=== PATIENT | female | born 1970 | race Caucasian/White ===

== ENCOUNTER 2017-04-10 13:31 | Emergency (ER) | payer OTHER ==
--- NOTE | 2017-04-10 14:31 | ED ORDER SUMMARY ---
..... Patient: MUKESH LYLE OrderSheet [facility] VisitID: [id number] [address] [place] [place] [address] 46y, F Registration Date/Time: 04/10/2017 ORDER SHEET Weight: 66.2 kg (stated) Allergies: No Known Drug Allergy GENERAL ORDERS: - (please evaluate for evidence of body fluid - blood cells specifically) (14:21 04/10/2017 [facility]) (14:24 CBradburn R.N.) SGPT Urgent (14:04/10/2017 [facility]) (Ack 14:51 [facility]) (14:59 CBradburn R.N.) HIV I and II Urgent (14:04/10/2017 [facility]) (Ack 14:51 [facility]) (14:59 CBradburn R.N.) HepBSAB Urgent (14:04/10/2017 [facility]) (Ack 14:51 [facility]) (14:59 CBradburn R.N.) HepBSAG Urgent (14:31 [facility] (Ack 14:51 [facility]) (14:59 CBradburn R.N.) HepCAB Urgent (14:04/10/2017 [facility]) (Ack 14:51 [facility]) (14:59 CBradburn R.N.) MEDICATION ORDERS: IV FLUIDS: ORDER SHEET NOTES: [Electronically signed by Lyla Jones R.N. (15:02 04/10/2017)] [Electronically signed by Scott Watson DO (16:41 04/10/2017)] [Electronically locked/signed by Lyla Jones R.N. (15:02 04/10/2017)]
--- NOTE | 2017-04-10 14:31 | ED CLINICAL REPORT ---
Clinical Report - Physicians/Mid Levels [facility] [address] [place] [address] 04/10/2017 13:34 Patient: MUKESH LYLE Time Seen: 13:48. Arrived- By private vehicle. Historian- patient. HISTORY OF PRESENT ILLNESS Chief Complaint: Injury to the right hand and Injury. (NEEDLE STICK). 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 The patient sustained a puncture wound from a needle. (pt reached under hotel bed states felt a needle prick her twice denies bleeding). No redness noted, red streak noted, swelling noted, drainage noted or fever noted. No increased pain noted or numbness noted. (local hotel). Patient is experiencing mild pain. Patient denies injury to the head or neck. No other injury. REVIEW OF SYSTEMS Last normal menstrual period was 2 weeks ago. No swelling, tingling, numbness, weakness or foreign body. No skin laceration. PAST HISTORY PROBLEMS: Small bowel obstruction. Depression. Anxiety Reaction. GERD. Back pain. SURGERIES: Gastric bypass. Tonsillectomy. The patient's dominant hand is the right. Tetanus immunization status is up-to-date. SOCIAL HISTORY Smoker- current status unknown. No alcohol use or drug use. Residence: [place]. ADDITIONAL NOTES The nursing notes have been reviewed. PHYSICAL EXAM Vital Signs: 04/10/2017 13:42 BP: 149/89. HR: 87. RR: 18. O2 saturation: 100%. Temp: 98.6 F. Pain level now: 0/10. Appearance: Alert. Oriented X3. Anxious. Patient in mild distress. Head: Head atraumatic. Eyes: Eyes normal inspection. No scleral icterus or pale conjunctivae. ENT: Nose normal. Neck: Normal inspection. Neck supple. CVS: Normal heart rate and rhythm. Heart sounds normal. Pulses normal. Respiratory: No respiratory distress. Breath sounds normal. Abdomen: No visible injury. Soft and nontender. No organomegaly. Back: Normal inspection. Skin: Skin warm and dry. Extremities: Right palm: abrasion (old abrasion, otherwise normal appearing hand). No erythema, tenderness, swelling, laceration or ecchymosis. No foreign body or deformity. No limitation in movement. No wrist injury. Hand and wrist exam otherwise negative. Extremities otherwise negative. Neuro, Vascular and Tendons: Vascular status intact. Sensation intact. Motor intact. Tendon function intact. Neuro: Oriented X 3. No motor deficit. No sensory deficit. LABS, X-RAYS, AND EKG Laboratory Tests: [id number]: (AYESHA: 04/10/2017 14:52) ( ScgRcvd 04/10/2017 15:28) Final results Test Result Flag Units (Reference) HIV-1 P24 ANTIGEN NEGATIVE (NEGATIVE) HIV-1 AND OR HIV-2 ANTIBODY NEGATIVE (NEGATIVE) [id number]: (AYESHA: 04/10/2017 14:52) ( ScgRcvd 04/10/2017 15:12) Final results Test Result Flag Units (Reference) ALT (SGPT) 19 U/L (12-78) . Pulse Oximetry: 04/10/2017 13:42 O2 saturation: 100%. (FIO2 - room air). Interpretation: normal. PROGRESS AND PROCEDURES Course of Care: Long discussion with patient about risks and benefits. She and her are informed that although there is a low risk, it is not zero risk. I have offered HIV prophylaxsis and she declines. The needle was clean without any sign of blood / body fluid and if present was present for over 24 hours as the family had been in the hotel room for that length of time. The needle was sent to the lab to see if it was possible to wash the devise and look for blood cells, but the lab does not feel there is any reasonable possibility of recovering any blood cells. Patient/family counseled. Prior records not ordered. Disposition: Discharged. Condition: stable and improved. CLINICAL IMPRESSION Single superficial puncture wound to the right hand (insulin autoinjector syringe- dry without visual evidence of blood). No puncture wound with foreign body present or infected puncture wound. Essential hypertension. INSTRUCTIONS Warnings: GENERAL WARNINGS: Return or contact your physician immediately if your condition worsens or changes unexpectedly, if not improving as expected, or if other problems arise. Your Current Medications: CONTINUE TAKING THE FOLLOWING MEDICATIONS: CloNIDine HCl Oral : Tablet 0.1 mg, 1 tablet 4x a day, prn. Cyclobenzaprine HCl Oral : 30mg 3x a day. PriLOSEC Oral : Capsule Delayed Release 40 mg, 1 capsule daily. SEROquel Oral : Tablet 300 mg, 1 tablet daily. Wellbutrin Oral : Tablet 100 mg, 300mg daily. Follow-up: Screening today revealed the patient's blood pressure to be in the hypertensive range. The patient should follow up with a primary care provider for blood pressure management. (Electronically signed by Scott Watson DO 04/10/2017 16:41)
--- NOTE | 2017-04-10 14:31 | ED CLINICAL REPORT ---
Clinical Report - Physicians/Mid Levels [facility] [address] [place] [address] 04/10/2017 13:34 Patient: MUKESH LYLE Time Seen: 13:48. Arrived- By private vehicle. Historian- patient. HISTORY OF PRESENT ILLNESS Chief Complaint: Injury to the right hand and Injury. (NEEDLE STICK). 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 The patient sustained a puncture wound from a needle. (pt reached under hotel bed states felt a needle prick her twice denies bleeding). No redness noted, red streak noted, swelling noted, drainage noted or fever noted. No increased pain noted or numbness noted. (local hotel). Patient is experiencing mild pain. Patient denies injury to the head or neck. No other injury. REVIEW OF SYSTEMS Last normal menstrual period was 2 weeks ago. No swelling, tingling, numbness, weakness or foreign body. No skin laceration. PAST HISTORY PROBLEMS: Small bowel obstruction. Depression. Anxiety Reaction. GERD. Back pain. SURGERIES: Gastric bypass. Tonsillectomy. The patient's dominant hand is the right. Tetanus immunization status is up-to-date. SOCIAL HISTORY Smoker- current status unknown. No alcohol use or drug use. Residence: [place]. ADDITIONAL NOTES The nursing notes have been reviewed. PHYSICAL EXAM Vital Signs: 04/10/2017 13:42 BP: 149/89. HR: 87. RR: 18. O2 saturation: 100%. Temp: 98.6 F. Pain level now: 0/10. Appearance: Alert. Oriented X3. Anxious. Patient in mild distress. Head: Head atraumatic. Eyes: Eyes normal inspection. No scleral icterus or pale conjunctivae. ENT: Nose normal. Neck: Normal inspection. Neck supple. CVS: Normal heart rate and rhythm. Heart sounds normal. Pulses normal. Respiratory: No respiratory distress. Breath sounds normal. Abdomen: No visible injury. Soft and nontender. No organomegaly. Back: Normal inspection. Skin: Skin warm and dry. Extremities: Right palm: abrasion (old abrasion, otherwise normal appearing hand). No erythema, tenderness, swelling, laceration or ecchymosis. No foreign body or deformity. No limitation in movement. No wrist injury. Hand and wrist exam otherwise negative. Extremities otherwise negative. Neuro, Vascular and Tendons: Vascular status intact. Sensation intact. Motor intact. Tendon function intact. Neuro: Oriented X 3. No motor deficit. No sensory deficit. LABS, X-RAYS, AND EKG Laboratory Tests: [id number]: (AYESHA: 04/10/2017 14:52) ( IagRcvd 04/10/2017 15:28) Final results Test Result Flag Units (Reference) HIV-1 P24 ANTIGEN NEGATIVE (NEGATIVE) HIV-1 AND OR HIV-2 ANTIBODY NEGATIVE (NEGATIVE) [id number]: (AYESHA: 04/10/2017 14:52) ( IagRcvd 04/10/2017 15:12) Final results Test Result Flag Units (Reference) ALT (SGPT) 19 U/L (12-78) . Pulse Oximetry: 04/10/2017 13:42 O2 saturation: 100%. (FIO2 - room air). Interpretation: normal. PROGRESS AND PROCEDURES Course of Care: Long discussion with patient about risks and benefits. She and her are informed that although there is a low risk, it is not zero risk. I have offered HIV prophylaxsis and she declines. The needle was clean without any sign of blood / body fluid and if present was present for over 24 hours as the family had been in the hotel room for that length of time. The needle was sent to the lab to see if it was possible to wash the devise and look for blood cells, but the lab does not feel there is any reasonable possibility of recovering any blood cells. Patient/family counseled. Prior records not ordered. Disposition: Discharged. Condition: stable and improved. CLINICAL IMPRESSION Single superficial puncture wound to the right hand (insulin autoinjector syringe- dry without visual evidence of blood). No puncture wound with foreign body present or infected puncture wound. Essential hypertension. INSTRUCTIONS Warnings: GENERAL WARNINGS: Return or contact your physician immediately if your condition worsens or changes unexpectedly, if not improving as expected, or if other problems arise. Your Current Medications: CONTINUE TAKING THE FOLLOWING MEDICATIONS: CloNIDine HCl Oral : Tablet 0.1 mg, 1 tablet 4x a day, prn. Cyclobenzaprine HCl Oral : 30mg 3x a day. PriLOSEC Oral : Capsule Delayed Release 40 mg, 1 capsule daily. SEROquel Oral : Tablet 300 mg, 1 tablet daily. Wellbutrin Oral : Tablet 100 mg, 300mg daily. Follow-up: Screening today revealed the patient's blood pressure to be in the hypertensive range. The patient should follow up with a primary care provider for blood pressure management. (Electronically signed by Scott Watson DO 04/10/2017 16:41)
--- NOTE | 2017-04-10 14:31 | ED ORDER SUMMARY ---
..... Patient: MUKESH LYLE OrderSheet [facility] VisitID: [id number] [address] [place] [address] 46y, F Registration Date/Time: 04/10/2017 ORDER SHEET Weight: 66.2 kg (stated) Allergies: No Known Drug Allergy GENERAL ORDERS: - (please evaluate for evidence of body fluid - blood cells specifically) (14:21 04/10/2017 [facility]) (14:24 CBradburn R.N.) SGPT Urgent (14:04/10/2017 [facility]) (Ack 14:51 [facility]) (14:59 CBradburn R.N.) HIV I and II Urgent (14:04/10/2017 [facility]) (Ack 14:51 [facility]) (14:59 CBradburn R.N.) HepBSAB Urgent (14:04/10/2017 [facility]) (Ack 14:51 [facility]) (14:59 CBradburn R.N.) HepBSAG Urgent (14:31 [facility]10[facility] (Ack 14:51 TBerg[facility]) (14:59 CBradburn R.N.) HepCAB Urgent (14:04/10/2017 [facility]) (Ack 14:51 [facility]) (14:59 CBradburn R.N.) MEDICATION ORDERS: IV FLUIDS: ORDER SHEET NOTES: [Electronically signed by Lyla Jones R.N. (15:02 04/10/2017)] [Electronically signed by Scott Watson DO (16:41 04/10/2017)] [Electronically locked/signed by Lyla Jones R.N. (15:02 04/10/2017)]
--- NOTE | 2017-04-10 14:31 | ED NURSING NOTES ---
Clinical Report - Nurses [facility] [address] [place] [address] 04/10/2017 13:34 Patient: MUKESH LYLE TRIAGE Triage time 13:42. Acuity: LEVEL 4. Chief Complaint: (needle stick). --13:50 Lyla Jones R.N. 13:42 04/10/17. BP: 149/89. HR: 87 (regular and normal rate). RR: 18 (regular and unlabored). O2 saturation: 100%. Temp: 98.6 F (oral). Pain level now: 0/10. --13:50 Lyla Jones R.N. Weight: 66.2 kg stated. Height/Length: 65 inches Per Patient. BMI: 24.3. --13:48 Lyla Jones R.N. Medications CloNIDine HCl Oral (Tablet 0.1 mg) 1 tablet, 4x a day as needed. --13:45 Lyla Jones R.N. Wellbutrin Oral (Tablet 100 mg) 300mg, daily. --13:45 Lyla Jones R.N. SEROquel Oral (Tablet 300 mg) 1 tablet, daily. --13:45 Lyla Jones R.N. Cyclobenzaprine HCl Oral 30mg, 3x a day. --13:46 Lyla Jones R.N. PriLOSEC Oral (Capsule Delayed Release 40 mg) 1 capsule, daily. --13:46 Lyla Jones R.N. Allergies No Known Drug Allergy. --13:47 Lyla Jones R.N. History Arrived by private vehicle. Historian: patient. Accompanied by family. [facility] Location of injuries: right hand. This occurred just prior to arrival. ( pt reached under hotel bed states felt a needle prick her twice denies bleeding.). 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 PAST MEDICAL HX: Tetanus status: up-to-date. Immunizations: up-to-date. Last normal menstrual period was 2 weeks ago. SOCIAL HX: Heavy tobacco smoker (cigarette)- less than 1 pack per day. No alcohol use or drug use. She has not traveled outside the [place] The patient was not exposed to tuberculosis, influenza, chicken pox, meningitis, MRSA, VRE, C-diff, SARS, Arnoldo flu, H1N1 flu, Ebola or MERS. ABUSE ASSESSMENT: No report of abuse. SELF HARM ASSESSMENT: A self harm assessment was performed. The patient answered "no" to the question "Have you recently felt down, depressed, or hopeless?", "Have you noticed less interest or pleasure in doing things?", "Do you have thoughts of harming or killing yourself?", "Are you here because you tried to hurt yourself?", "Have you ever tried to hurt yourself before today?", "Have you recently had thoughts about harming or killing others?" and "Do you have any dangerous items in your possession?". FALL RISK ASSESSMENT: Fall risk assessment completed. No fall risk identified. NUTRITIONAL RISK ASSESSMENT: The nutritional risk assessment revealed no deficiencies. FUNCTIONAL ASSESSMENT: Functional assessment: no impairments noted. LEARNING NEEDS ASSESSMENT: The learning needs assessment revealed no barriers. SKIN INTEGRITY ASSESSMENT: Skin integrity risk assessment completed. No skin integrity risk identified. --13:50 Lyla Jones R.N. PROBLEMS: Small bowel obstruction. Depression. Anxiety Reaction. --13:48 Lyla Jones R.N. ADDITIONAL SURGERIES: Gastric bypass. Tonsillectomy. --13:48 Lyla Jones R.N. Interventions ID band on patient. --13:50 Lyla Jones R.N. PHYSICAL ASSESSMENT Ambulatory to room. GENERAL / NEURO / PSYCH: Alert. Oriented X 4. Appears anxious. HEENT: Pupils equal, round and reactive to light. Head non-tender. RESPIRATORY: Respirations not labored. Chest nontender. Breath sounds within normal limits. CVS: Normal heart rate and rhythm. Pulses within normal limits. Capillary refill less than 2 seconds. GI / : Abdomen soft and nontender. EXTREMITIES: Extremities exhibit normal ROM. Neuro-vascular status intact to the extremity. Right hand: tenderness and small abrasion localized to the palmar aspect of the hand (2 small abrasions). SKIN: Skin intact. Skin is warm and dry. --13:52 Lyla Jones R.N. NURSING PROGRESS NOTES Two patient identifiers checked. Call light placed in reach. Side rails up x 1. Bed placed in lowest position. Brakes of bed on. Patient ready for evaluation- chart flagged. --13:52 Lyla Jones R.N. DISPOSITION / DISCHARGE Departure time: 1455. Condition at departure: unchanged and stable. No learning barriers present. Discharge instructions provided and reviewed with the patient. Patient verbalized understanding. Written instructions provided in Macedonian. No medication instructions, treatment instructions or referrals given to the patient. The patient was discharged home and accompanied by spouse. She left the Emergency Department ambulatory and via private vehicle. Spouse driving. --15:02 Lyla Jones R.N. 15:00 04/10/17. BP: 129/87. HR: 84 (regular and normal rate). RR: 18 (regular and unlabored). O2 saturation: 100% on room air. Temp: deferred. Pain level now: 0/10. --15:02 Lyla Jones R.N. Locked/Released at 04/10/2017 15:02 by Lyla Jones R.N.
--- NOTE | 2017-04-10 14:31 | ED NURSING NOTES ---
Clinical Report - Nurses [facility] [address] [place] [address] 04/10/2017 13:34 Patient: MUKESH LYLE TRIAGE Triage time 13:42. Acuity: LEVEL 4. Chief Complaint: (needle stick). --13:50 Lyla Jones R.N. 13:42 04/10/17. BP: 149/89. HR: 87 (regular and normal rate). RR: 18 (regular and unlabored). O2 saturation: 100%. Temp: 98.6 F (oral). Pain level now: 0/10. --13:50 Lyla Jones R.N. Weight: 66.2 kg stated. Height/Length: 65 inches Per Patient. BMI: 24.3. --13:48 Lyla Jones R.N. Medications CloNIDine HCl Oral (Tablet 0.1 mg) 1 tablet, 4x a day as needed. --13:45 Lyla Jones R.N. Wellbutrin Oral (Tablet 100 mg) 300mg, daily. --13:45 Lyla Jones R.N. SEROquel Oral (Tablet 300 mg) 1 tablet, daily. --13:45 Lyla Jones R.N. Cyclobenzaprine HCl Oral 30mg, 3x a day. --13:46 Lyla Jones R.N. PriLOSEC Oral (Capsule Delayed Release 40 mg) 1 capsule, daily. --13:46 Lyla Jones R.N. Allergies No Known Drug Allergy. --13:47 Lyla Jones R.N. History Arrived by private vehicle. Historian: patient. Accompanied by family. [facility] Location of injuries: right hand. This occurred just prior to arrival. ( pt reached under hotel bed states felt a needle prick her twice denies bleeding.). Treatment SEO ASSOCIATE: (soap and water). PAST MEDICAL HX: Tetanus status: up-to-date. Immunizations: up-to-date. Last normal menstrual period was 2 weeks ago. SOCIAL HX: Heavy tobacco smoker (cigarette)- less than 1 pack per day. No alcohol use or drug use. She has not traveled outside the [place] The patient was not exposed to tuberculosis, influenza, chicken pox, meningitis, MRSA, VRE, C-diff, SARS, Arnoldo flu, H1N1 flu, Ebola or MERS. ABUSE ASSESSMENT: No report of abuse. SELF HARM ASSESSMENT: A self harm assessment was performed. The patient answered "no" to the question "Have you recently felt down, depressed, or hopeless?", "Have you noticed less interest or pleasure in doing things?", "Do you have thoughts of harming or killing yourself?", "Are you here because you tried to hurt yourself?", "Have you ever tried to hurt yourself before today?", "Have you recently had thoughts about harming or killing others?" and "Do you have any dangerous items in your possession?". FALL RISK ASSESSMENT: Fall risk assessment completed. No fall risk identified. NUTRITIONAL RISK ASSESSMENT: The nutritional risk assessment revealed no deficiencies. FUNCTIONAL ASSESSMENT: Functional assessment: no impairments noted. LEARNING NEEDS ASSESSMENT: The learning needs assessment revealed no barriers. SKIN INTEGRITY ASSESSMENT: Skin integrity risk assessment completed. No skin integrity risk identified. --13:50 Lyla Joens R.N. PROBLEMS: Small bowel obstruction. Depression. Anxiety Reaction. --13:48 Lyla Jones R.N. ADDITIONAL SURGERIES: Gastric bypass. Tonsillectomy. --13:48 Lyla Jones R.N. Interventions ID band on patient. --13:50 Lyla Jones R.N. PHYSICAL ASSESSMENT Ambulatory to room. GENERAL / NEURO / PSYCH: Alert. Oriented X 4. Appears anxious. HEENT: Pupils equal, round and reactive to light. Head non-tender. RESPIRATORY: Respirations not labored. Chest nontender. Breath sounds within normal limits. CVS: Normal heart rate and rhythm. Pulses within normal limits. Capillary refill less than 2 seconds. GI / : Abdomen soft and nontender. EXTREMITIES: Extremities exhibit normal ROM. Neuro-vascular status intact to the extremity. Right hand: tenderness and small abrasion localized to the palmar aspect of the hand (2 small abrasions). SKIN: Skin intact. Skin is warm and dry. --13:52 Lyla Jones R.N. NURSING PROGRESS NOTES Two patient identifiers checked. Call light placed in reach. Side rails up x 1. Bed placed in lowest position. Brakes of bed on. Patient ready for evaluation- chart flagged. --13:52 Lyla Jones R.N. DISPOSITION / DISCHARGE Departure time: 1455. Condition at departure: unchanged and stable. No learning barriers present. Discharge instructions provided and reviewed with the patient. Patient verbalized understanding. Written instructions provided in Divehi. No medication instructions, treatment instructions or referrals given to the patient. The patient was discharged home and accompanied by spouse. She left the Emergency Department ambulatory and via private vehicle. Spouse driving. --15:02 Lyla Jones R.N. 15:00 04/10/17. BP: 129/87. HR: 84 (regular and normal rate). RR: 18 (regular and unlabored). O2 saturation: 100% on room air. Temp: deferred. Pain level now: 0/10. --15:02 Lyla Jones R.N. Locked/Released at 04/10/2017 15:02 by Lyla Jones R.N.
--- NOTE | 2017-04-10 16:42 | ED DISCHARGE INSTRUCTIONS ---
Patient: MUKESH LYLE General Instructions [facility] VisitID: [id number] [address] [place] [address] 46y, F Registration Date/Time: 04/10/2017 Single superficial puncture wound to the right hand (insulin autoinjector syringe- dry without visual evidence of blood). No puncture wound with foreign body present or infected puncture wound. Essential hypertension. INSTRUCTIONS Warnings: GENERAL WARNINGS: Return or contact your physician immediately if your condition worsens or changes unexpectedly, if not improving as expected, or if other problems arise. Your Current Medications: CONTINUE TAKING THE FOLLOWING MEDICATIONS: CloNIDine HCl Oral : Tablet 0.1 mg, 1 tablet 4x a day, prn. Cyclobenzaprine HCl Oral : 30mg 3x a day. PriLOSEC Oral : Capsule Delayed Release 40 mg, 1 capsule daily. SEROquel Oral : Tablet 300 mg, 1 tablet daily. Wellbutrin Oral : Tablet 100 mg, 300mg daily. Follow-up: Screening today revealed the patient's blood pressure to be in the hypertensive range. The patient should follow up with a primary care provider for blood pressure management. ADDITIONAL INFORMATION Puncture Wound (General) A puncture wound is a hole through the skin. Bacteria, dirt and debris can be drawn into this wound, increasing the risk of infection. However, antibiotics are usually not prescribed for this injury unless signs of infection are already present. Therefore, it is important to observe the wound closely for the signs of infection listed below. Home Care: If your wound is on an arm, hand, leg, or foot, keep that part raised during the first 48 hours to reduce swelling and pain. Keep the wound clean and dry. If a bandage was applied and it becomes wet or dirty, replace it. Otherwise, leave it in place for the next 24 hours. You may use acetaminophen (Tylenol) or ibuprofen (Motrin, Advil) to control pain, unless another medicine was prescribed. [NOTE: If you have chronic liver or kidney disease or ever had a stomach ulcer or GI bleeding, talk with your doctor before using these medicines.] You may shower as usual. However, do not soak the area in water (no baths or swimming) during the first 48 hours. Follow Up: Most puncture wounds heal within 10 days. However, an infection may sometimes occur despite proper treatment. If small particles were drawn into the puncture wound (such as fragments of cloth, rubber, wood or dirt), an infection may occur. These fragments are very hard to find during the first exam since it is not possible to get a good look inside a puncture wound and they do not show on an X-ray. Antibiotics and a minor surgical procedure to find and remove the foreign object will be needed if this happens. Therefore, check the wound daily for the warning signs listed below. Get Prompt Medical Attention if any of the following occur: SIGNS OF INFECTION: Increasing pain in the wound Redness, swelling, pus or red lines coming from the wound Fever of 100.4F (38C) or higher, or as directed by your healthcare provider High Blood Pressure -- To Be Confirmed [No Tx] Your blood pressure was higher today than normal. Sometimes anxiety or pain can cause a temporary rise in blood pressure that later returns to normal. If your blood pressure is high on one measurement, this does not mean that you have hypertension (a chronic illness). However, you must have your blood pressure measured again within the next few days to find out if its still high. A normal blood pressure is 120/80 or less. The first (top) number is the "systolic" pressure. The second (bottom) number is the "diastolic" pressure. Hypertension exists when either the top number is 140 or higher, OR the bottom number is 90 or higher on repeated measurements. Blood pressure in the range of 120-140 (systolic) or 80-89 (diastolic) is considered "pre-hypertension". This means your are at risk for getting hypertension. You should have regular blood pressure checks to be sure your blood pressure is not rising. Home Care: Measure your blood pressure on 3 different days and write down the results. This can be done at your doctor's office or this facility. Some pharmacies and grocery stores offer automated blood pressure machines for your use. Follow Up: If your blood pressure is "high" (over 120/80) on 2 out of 3 days, you will need to follow up with your doctor for further evaluation and treatment. DO NOT PUT THIS OFF! Untreated high blood pressure increases the risk for heart attack, also known as acute myocardial infarction, or AMI, and stroke. It is a treatable condition. Get Prompt Medical Attention if any of the following occur: Chest pain or shortness of breath Severe headache Throbbing or rushing sound in the ears Nosebleed Sudden severe abdominal pain Extreme drowsiness, confusion or fainting Dizziness or vertigo (dizziness with spinning sensation) Weakness of an arm or leg or one side of the face Difficulty with speech or vision You have been given the following additional information: Puncture Wound, General Hypertension, To Be Confirmed (Electronically signed by Scott Watson DO 04/10/2017 16:41)
--- NOTE | 2017-04-10 16:42 | ED MED RECONCILIATION SUMMARY ---
Patient: MUKESH LYLE Medication Reconciliation Report [facility] VisitID: [id number] [address] [place] [address] 46y, F Registration Date/Time: 04/10/2017 Weight: 66.2 kg Height/Length: 65 in. BMI: 24.3 ALLERGIES: No Known Drug Allergy The patient's Home Medications are listed below: CONTINUE TAKING THE FOLLOWING MEDICATIONS: CloNIDine HCl Oral (0.1 mg) 1 tablet, 4x a day Cyclobenzaprine HCl Oral 30mg, 3x a day PriLOSEC Oral (40 mg) 1 capsule, daily SEROquel Oral (300 mg) 1 tablet, daily Wellbutrin Oral (100 mg) 300mg, daily The source(s) of the original Home Medication information: Not obtained. The following Medications were given to the patient in the Emergency Department: None. The following Medications were prescribed to the patient: None.
--- NOTE | 2017-04-10 16:42 | ED MAR SUMMARY ---
..... Medication Administration Record [facility] [address] [place], [place] [id number] Patient: MUKESH LYLE Visit ID: [id number] 46y, F Weight: 66.2 kg Height/Length: 65 in BMI: 24.3 ALLERGIES: No Known Drug Allergy
--- NOTE | 2017-04-10 16:42 | ED MAR SUMMARY ---
..... Medication Administration Record [facility] [address] [place], [place] [id number] Patient: MUKESH LYLE Visit ID: [id number] 46y, F Weight: 66.2 kg Height/Length: 65 in BMI: 24.3 ALLERGIES: No Known Drug Allergy
--- NOTE | 2017-04-10 16:42 | ED MED RECONCILIATION SUMMARY ---
Patient: MUKESH LYLE Medication Reconciliation Report [facility] VisitID: [id number] [address] [place] [address] 46y, F Registration Date/Time: 04/10/2017 Weight: 66.2 kg Height/Length: 65 in. BMI: 24.3 ALLERGIES: No Known Drug Allergy The patient's Home Medications are listed below: CONTINUE TAKING THE FOLLOWING MEDICATIONS: CloNIDine HCl Oral (0.1 mg) 1 tablet, 4x a day Cyclobenzaprine HCl Oral 30mg, 3x a day PriLOSEC Oral (40 mg) 1 capsule, daily SEROquel Oral (300 mg) 1 tablet, daily Wellbutrin Oral (100 mg) 300mg, daily The source(s) of the original Home Medication information: Not obtained. The following Medications were given to the patient in the Emergency Department: None. The following Medications were prescribed to the patient: None.
== END 2017-04-10 14:55 | disposition home or self-care (01) ==
LOC: ED SRH 13:31
DX: S61.431A Puncture wound without foreign body of right hand, initial encounter (principal); I10 Essential (primary) hypertension; W46.0XXA Contact with hypodermic needle, initial encounter; Y93.9 Activity, unspecified; Y99.9 Unspecified external cause status; Y92.59 Other trade areas as the place of occurrence of the external cause
CPT/HCPCS: 90073; 90074; 90075; 90077; 90078; 90364; 92800; 92863; 99777